=== PATIENT | female | born 1985 | race Two or more races ===

== ENCOUNTER 2024-04-16 07:10 | Inpatient (IN) | payer MEDICAID, OTHER ==
[~2024-04-16] VITALS: Ht 160 cm; Wt 63.5 kg
[2024-04-16] MEDS ORDERED: PHISODERM TOP SOLN 240ML BTL TOP PRN (07:45)
[2024-04-16] MEDS ORDERED: BUTORPHANOL TARTRATE 2 MG/1 ML VIAL IV PRN ×2 (07:45)
[2024-04-16] MEDS ORDERED: WITCH HAZEL-GLYCERIN PAD TOP PRN (07:45)
[2024-04-16] MEDS ORDERED: LIDOCAINE 2%HCL (LOCAL ANESTH.) INJ 20ML MDV IJ PRN (07:45)
[2024-04-16] MEDS ORDERED: DERMOPLAST 60ML BOTTLE TOP PRN (07:45)
[2024-04-16] MEDS ORDERED: miSOPROStol 100 mcg TAB PR PRN (08:30)
[2024-04-16] MEDS ORDERED: miSOPROStol 100 mcg TAB SL PRN (08:30)
[2024-04-16] MEDS ORDERED: CARBOPROST TROMETHAMINE 250 MCG/1ML VIAL IM PRN (08:30)
[2024-04-16 08:40] LABS: Basophils # (auto) 0 10 ^3/uL (0-0.2); Basophils % (auto) 0.3 % (0.0-2.0); Eosinophils # (auto) 0 10 ^3/uL (0-0.8); Eosinophils % (auto) 0.4 % (0.0-7.0); Hematocrit 37.8 % (36.0-46.0); Hemoglobin 13.1 g/dL (12.2-16.2); Lymphocytes # (auto) 1.8 10 ^3/uL (0.4-5.4); Lymphocytes % (auto) 26.4 % (10.0-50.0); Mean Corpuscular Hgb Conc. 34.8 g/dL (32.0-36.0); Monocytes # (auto) 0.5 10 ^3/uL (0-1.3); Monocytes % (auto) 6.5 % (0.0-12.0); Neutrophils # (auto) 4.6 10 ^3/uL (1.6-8.6); Neutrophils % (auto) 66.4 % (37.0-80.0); Nucleated Red Blood Cells % 0.1 %; Platelet Count (auto) 210 10^3/uL (140-450); Red Blood Cells 4.11 10^6/uL (4.0-5.20); Red Cell Distribution Width 13.7 % (11.8-14.3); White Blood Cell 6.9 10^3/uL (4.4-10.8)
[2024-04-16 08:51] LABS: Urine Bacteria FEW /hpf (None Seen); Urine Blood Negative /uL (Negative); Urine Color Yellow (Yellow); Urine Protein, UAD TRACE (Negative); Urine Specific Gravity 1.017 (1.001-1.035); Urine Urobilinogen Normal (Negative); Urine WBC <1 /hpf (0 - 5)
[2024-04-16 08:52] LABS: Amphetamine Screen, Urine Neg (NEGATIVE); Barbiturate Scree,Urine Neg (NEGATIVE); Benzodiazephine Screen, Urine Neg (NEGATIVE); Cannabinoid Screen, Urine Neg (NEGATIVE); Cocaine Screen, Urine Neg (NEGATIVE); Opiate Scree,Urine Neg (NEGATIVE); Phencyclidine Screen, Urine Neg (NEGATIVE); Urine Clarity Clear (Clear)
[2024-04-16 08:53] LABS: Alanine Aminotransferase 59 U/L (7-40); Albumin 3.8 g/dL (3.2-4.8); Alkaline Phosphatase 147 U/L (46-116); Anion Gap 9 (5-15); Aspartate Aminotransferase 46 U/L (13-40); BUN/Creatinine Ratio 21.1 (10.0-20.0); Bilirubin, Total 0.5 mg/dL (0.2-1.0); Blood Urea Nitrogen 12 mg/dL (9-23); Calcium 9.5 mg/dL (8.7-10.4); Carbon Dioxide 23 mmol/L (20-31); Chloride 107 mmol/L (98-107); Glucose 92 mg/dL (74-106); Sodium 139 mmol/L (136-145); Total Protein 6.4 g/dL (5.7-8.2)
[2024-04-16 08:56] LABS: INR 0.92 (0.9-1.15); Partial Thromboplastin Time 26.8 SEC (24.5-34.5); Prothrombin Time 9.8 sec (9.3-11.8)
--- NOTE | 2024-04-16 09:50 | DVHHP2 ---
OB CC & HPI Date Date of Admission: Apr 16, 2024 Patient Identification: : 5 Para: 4 (Living x 3) EDC: Apr 23, 2024 EGA: 39 Chief Complaints: Reason for admission: induction of labor History of Present Complaints Term IUP, AMA G5 P:3-1-0-3 Elective Induction at 39 wk. Hx of prior 26 wk IUFD GBS neg Past Medical History Cardiac: No pertinent Hx Pulmonary: No pertinent Hx Central Nervous System: No pertinent Hx GI: No pertinent Hx Hemotology/Oncology: No pertinent Hx Hepatobiliary: No pertinent Hx Psychiatric: No pertinent Hx Musculoskeletal: No pertinent Hx Rheumotologic: No pertinent Hx Infectious Disease: No peritnent Hx ENT: No pertinent Hx Renal/: No pertinent Hx Endocrine: No pertinent Hx Dermatology: No pertinent Hx Past Surgical History: No pertinent Hx OB History OB History Care: Good Care Ultrasounds: Normal mid trimester US Obstetrical Complications: None Allergies: Coded Allergies: Peanut-containing Drug Products (Verified Allergy, Unknown, 04/16/24) Current Medications Current Medications Medications (Trade) Dose Ordered Sig/Julio Route PRN Reason Start Time Stop Time Status Last Admin Lactated Ringer's 1,000 ml @ 125 mls/hr Q8H IV 04/16/24 07:45 Witch Sherri (Tucks) 1 pad PRN PRN TOP PERINEAL AREA DISCOMFORT 04/16/24 07:45 Sodium Lauryl Sulfate (Phisoderm) 240 ml PRN PRN TOP PERINEAL AREA DISCOMFORT 04/16/24 07:45 Benzocaine (Dermoplast) 1 applic PRN PRN TOP PERINEAL AREA DISCOMFORT 04/16/24 07:45 Butorphanol Tartrate (Stadol Injection) 1 mg Q4HPRN PRN IV MODERATE PAIN (4-6 PAIN SCALE) 04/16/24 07:45 Butorphanol Tartrate (Stadol Injection) 2 mg Q4HPRN PRN IV SEVERE PAIN (7-10 PAIN SCALE) 04/16/24 07:45 Misoprostol (Cytotec) 50 mcg Q4HPRN PRN PO CERVICAL RIPENING 04/16/24 07:45 Lidocaine HCl (Xylocaine) 20 ml ONCE PRN IJ PERINEAL AREA DISCOMFORT 04/16/24 07:45 Carboprost Tromethamine (Hemabate) 250 mcg Q20M PRN IM POST HEMORRHAGE 04/16/24 08:30 04/16/24 09:18 DC Methylergonovine Maleate (Methergine) 0.2 mg Q8HP PRN IM POST HEMORRHAGE 04/16/24 08:30 04/18/24 08:29 Misoprostol (Cytotec) 200 mcg ONCE PRN SL BLEED/HEMORRHAGE 04/16/24 08:30 Misoprostol (Cytotec) 600 mcg ONCE PRN IA BLEED/HEMORRHAGE 04/16/24 08:30 Diphenoxylate HCl/ Atropine (Lomotil Tablet) 5 mg Q12HR PO 04/16/24 10:00 Family & Social History Family/Social History GBS Status: Negative HBsAG: Negative Review of Systems Constitutional: No symptom reported Ears, Nose, & Throat: No symptom reported Eyes: No symptom reported Pulmonary/Respiratory: No symptom reported Cardiovascular: No symptom reported Gastrointestinal: No symptom reported Genitourinary: No symptom reported Musculoskeletal: No symptom reported Skin: No symptom reported Psychiatric: No symptom reported Endocrine: No symptom reported Hemotologic/Lymphatic: No symptom reported OB Admission Exam Physical Exam HEENT: NCAT Heart: Rhythm Normal Lungs: Clear Abdomen: Gravid Extremities: Normal Reflexes: Normal Cervical Dilatation: 1cm Effacement: 0% Station: -3 Membranes: Intact Heart Rate: 130's Accelerations: Accelerations Present Decelerations: No Decelerations Short Term Variability: Present Long-Term Variability: Average (6-25) Contractions on Admission: < 5 Minutes Apart Intensity: Mild OB Plan Plan Admitting Diagnosis: Term IUP 39 wk, Induction of Labor GBS neg AMA Induction Methd: Misoprostol protocol Other Plan: Informed consent obtained for admission, induction of labor and vaginal delivery Indications for C/S and or vacuum delivery discussed w/ patient in detail. NED GALAVIZ DO Apr 16, 2024 09:50
[2024-04-16] MEDS: miSOPROStol 50 MCG per PRE-CUT 1/2 TAB PO PRN (10:00)
[2024-04-16] MEDS ORDERED: DIPHENOXYLATE W/ATROPINE 2.5 MG TAB PO SCH (10:00)
[2024-04-16] MEDS: LACTATED RINGER'S 1,000 ML IV SCH (16:06)
[2024-04-16] MEDS: ROPIVACAINE HCL 200 ML ONE (16:07)
--- NOTE | 2024-04-16 20:26 | LDN2 ---
Labor and Delivery Note Date 04/16/24 Age 38 5 Para 5 (Living x 4) EGA 39 Diagnosis Term IUP, AMA, 39 wk gestational age-Delivered Nuchal Cord x 1 Hx of prior IUFD Vaginal Delivery: VTX Vacuum Assisted: No Placenta: Spontaneous Sex: Male Weight Pending Apgars 8/9 Nuchal Cord Transected: No (Nuchal cord reduced at perineum after delivery of head) Amniotic Fluid: Clear Anesthesia Epidural Episiotomy: No Repaired with N/A EBL 75 mL Labs Blood Bank 04/16/24 08:24: Blood Type A POSITIVE Complications None Comments/Significant Med David Variable and prolonged decelerations in 2nd stage of labor, immediately before delivery NUCHAL CORD X 1 Cord gases ordered, results pending Baby vigorous and crying with good color, moving all extremities. NED GALAVIZ DO Apr 16, 2024 20:26
[2024-04-16] MEDS: METHYLERGONOVINE MALEATE 0.2 MG/ML AMP IM PRN (21:44)
[2024-04-16] MEDS ORDERED: ONDANSETRON ODT 4 MG TAB PO PRN (22:00)
[2024-04-16] MEDS: IBUPROFEN 600 MG TAB PO PRN (22:14)
[2024-04-16] MEDS: LACT. RINGERS/OXYTOCIN 20UNITS 500 ML IV ONE ×2 (22:27)
[2024-04-16] MEDS: ACETAMINOPHEN 325 MG TAB PO PRN (23:04)
[2024-04-17] VITALS (7 sets, daily range): BP systolic 99–124; BP diastolic 53–58; PULSE 55–68; RESP 12–18; TEMP 97.8–98.8; O2SAT 96–97
--- NOTE | 2024-04-17 03:21 | DVHPN2 ---
Progress Note Date Seen: Apr 17, 2024 Subjective PPD#1 s/p Mild lochia, pain controlled. NO fever/chills vital signs Vital Sign Date Time Temp Pulse Resp B/P (MAP) Pulse Ox O2 Delivery O2 Flow Rate FiO2 04/17/24 02:42 98.7 63 12 115/58 (77) 96 98.7 medications Current Medications Medications Dose Ordered Sig/Julio Route Start Time Stop Time Status Last Admin Dose Admin Lactated Ringer's 1,000 ml @ 125 mls/hr Q8H IV 04/16/24 07:45 04/16/24 21:48 125 MLS/HR Witch Sherri 1 pad PRN PRN TOP 04/16/24 07:45 Sodium Lauryl Sulfate 240 ml PRN PRN TOP 04/16/24 07:45 Benzocaine 1 applic PRN PRN TOP 04/16/24 07:45 Butorphanol Tartrate 1 mg Q4HPRN PRN IV 04/16/24 07:45 Cancel Butorphanol Tartrate 2 mg Q4HPRN PRN IV 04/16/24 07:45 Cancel Lidocaine HCl 20 ml ONCE PRN IJ 04/16/24 07:45 Cancel Methylergonovine Maleate 0.2 mg Q8HP PRN IM 04/16/24 08:30 04/18/24 08:29 04/16/24 21:44 0.2 MG Misoprostol 200 mcg ONCE PRN SL 04/16/24 08:30 Misoprostol 600 mcg ONCE PRN [place] 04/16/24 08:30 Diphenoxylate HCl/ Atropine 5 mg Q12HR PO 04/16/24 10:00 Cancel Ibuprofen 600 mg Q6HP PRN PO 04/16/24 22:00 04/16/24 22:14 600 MG Acetaminophen 650 mg Q4HP PRN PO 04/16/24 22:00 04/16/24 23:04 650 MG Ondansetron HCl 4 mg Q4HPRN PRN PO 04/16/24 22:00 laboratory and microbiology Laboratory Tests 04/16/24 08:24 Test 04/16/24 08:24 Range/Units Serum Glucose 92 74-106 mg/dL Objective O: AFVSS Chest: heart and lung sounds normal. Abd soft, non-tender, fundus firm, BS, no rebound or guarding, Ext Neg Homans, Non-tender, edema Lochia - minimal Labs Pending Assessment/Plan 38y s/p INDUCTION OF LABOR with PPD#1 doing well Advance order Continue observation Plan discussed with: Patient NED GALAVIZ Reinaldo Apr 17, 2024 03:21
[2024-04-17] MEDS ORDERED: IBU600T PO (11:10)
--- NOTE | 2024-04-17 11:12 | DVHDS2 ---
Physician Discharge Progress N Final Diagnosis: Term , delivered AMA s/p Operations or Procedures: Operations or Procedures Induction of labor Commentary: Commentary Normal labor and delivery normal Condition on Discharge: Stable Disposition: Home Discharge Instructions: Diet: Regular Activity: Light activity Follow Up/Referral: 2 weeks [facility] (or Dr. Galaviz) Medications: Ibuprofen Follow Up Care: Discharge Statement: "Patient was advised to return to the ER or call 911 if any headaches, dizziness, shortness of breath, chest pain, abdominal pain, bleeding, fevers, or worsening of medical condition. Patient was counseled about treatment plan, medications, possible side effects, patientverbalized understanding. All questions were answered to the best of my ability. This discharge took greater then 30 minutes in planning, reviewing documentation, counseling the patient, and discussing with other team members." NED GALAVIZ DO Apr 17, 2024 11:12
[2024-04-17] MEDS: TRANEXAMIC ACID 1,000 MG in SODIUM CHL 0.9% 100 ML IV ONE (16:05)
[2024-04-17] MEDS: NALOXONE HCL 0.4 MG/ML VIAL IV ONE (16:06)
[2024-04-17] MEDS: ePHEDrine SULFATE 50 MG/ML AMP IV ONE (16:06)
[2024-04-18 03:00] VITALS: BP 118/56; PULSE 63; RESP 14; TEMP 97.2; O2SAT 97
--- NOTE | 2024-04-18 05:45 | DVHPN2 ---
Progress Note Date Seen: Apr 18, 2024 Subjective PPD#2 doing well. 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 no pain vital signs Vital Sign Date Time Temp Pulse Resp B/P (MAP) Pulse Ox O2 Delivery O2 Flow Rate FiO2 04/18/24 03:00 97.2 63 14 118/56 (76) 97 97.2 04/17/24 19:10 Room Air Total Intake and Output 04/17/24 04/17/24 04/18/24 15:00 23:00 07:00 Intake Total 500 ml Output Total 1100 ml Balance -1100 ml 500 ml medications Current Medications Medications Dose Ordered Sig/Julio Route Start Time Stop Time Status Last Admin Dose Admin Lactated Ringer's 1,000 ml @ 125 mls/hr Q8H IV 04/16/24 07:45 04/16/24 21:48 125 MLS/HR Witch Sherri 1 pad PRN PRN TOP 04/16/24 07:45 Sodium Lauryl Sulfate 240 ml PRN PRN TOP 04/16/24 07:45 Benzocaine 1 applic PRN PRN TOP 04/16/24 07:45 Butorphanol Tartrate 1 mg Q4HPRN PRN IV 04/16/24 07:45 Cancel Butorphanol Tartrate 2 mg Q4HPRN PRN IV 04/16/24 07:45 Cancel Lidocaine HCl 20 ml ONCE PRN IJ 04/16/24 07:45 Cancel Methylergonovine Maleate 0.2 mg Q8HP PRN IM 04/16/24 08:30 04/18/24 08:29 04/16/24 21:44 0.2 MG Misoprostol 200 mcg ONCE PRN SL 04/16/24 08:30 Misoprostol 600 mcg ONCE PRN [place] 04/16/24 08:30 Diphenoxylate HCl/ Atropine 5 mg Q12HR PO 04/16/24 10:00 Cancel Ibuprofen 600 mg Q6HP PRN PO 04/16/24 22:00 04/16/24 22:14 600 MG Acetaminophen 650 mg Q4HP PRN PO 04/16/24 22:00 04/18/24 03:20 650 MG Ondansetron HCl 4 mg Q4HPRN PRN PO 04/16/24 22:00 laboratory and microbiology Laboratory Tests 04/16/24 08:24 Test 04/16/24 08:24 Range/Units Serum Glucose 92 74-106 mg/dL Objective O: AFVSS Chest: heart and lung sounds normal. Abd soft, non-tender, fundus firm, BS, no rebound or guarding, Ext Neg Homans, Non-tender, edema Lochia - minimal Labs reviewed Assessment/Plan s/p Term doing well D/C to home today. Plan discussed with: Patient NED GALAVIZ DO Apr 18, 2024 05:45
[2024-04-18 06:30] VITALS: BP 115/55; PULSE 64; RESP 16; TEMP 97.6; O2SAT 97
[2024-04-18 09:50] VITALS: BP 115/55; PULSE 64; RESP 16; TEMP 98; O2SAT 97
[2024-04-18 13:06] LABS: Chlamydia Trachomatis, NAA Negative (Negative); Neisseria gonorrhoeae, NAA Negative (Negative)
[2024-04-19 04:06] LABS: RPR Non Reactive (Non Reactive)
[2024-04-19 11:06] LABS: Treponema Pallidum Ab LC Non Reactive (Non Reactive)
== END 2024-04-18 09:50 | disposition home or self-care (01) | DRG 560 ==
LOC: LDRP 07:10
PROVIDERS: ADMIT Obstetrics & Gynecology; ATTEND Obstetrics & Gynecology
PROC: 10E0XZZ Delivery of Products of Conception, External Approach (ICD-10-PCS; principal; 2024-04-16)
PROC: 3E0DXGC Introduction of Other Therapeutic Substance into Mouth and Pharynx, External Approach (ICD-10-PCS; 2024-04-16)
PROC: 3E0R3BZ Introduction of Anesthetic Agent into Spinal Canal, Percutaneous Approach (ICD-10-PCS; 2024-04-16)
PROC: 00HU33Z Insertion of Infusion Device into Spinal Canal, Percutaneous Approach (ICD-10-PCS; 2024-04-16)
DX: O69.81X0 Labor and delivery complicated by cord around neck, without compression, not applicable or unspecified (principal); Z37.0 Single live birth; O76 Abnormality in fetal heart rate and rhythm complicating labor and delivery; Z3A.39 39 weeks gestation of pregnancy; Z91.010 Allergy to peanuts
CPT/HCPCS: 36415; 59409; 62282; 80053; 80307; 81001; 81002; 85025; 85610; 85730; 86592; 86780; 86803; 86850; 86900; 86901; 94760; 94762; 96360; 96361; 96365; 96366; 96372; G0378; J2590